=== PATIENT | female | born 1960 | race Caucasian/White ===

== ENCOUNTER → 2016-06-14 | Outpatient (CLI) | payer BC ==
--- NOTE | 2016-06-14 13:51 | KCIC ---
LEFT LOWER EXTREMITY VENOUS DUPLEX DOPPLER Indication: Reason For Study Reason: / Spl. Instructions: / History: Technique: Multiple real-time grayscale sonographic images were obtained over the left lower extremity with use of spectral analysis and color Doppler imaging. Findings: There is normal color fill in on Doppler imaging of the deep venous system in the left lower extremity. There is normal response to compression and augmentation. No evidence for deep venous thrombosis. No soft tissue mass or fluid collection is identified. Impression: Negative for deep venous thrombosis in the left lower extremity. Electronically signed by: Dennis Menchaca (Jun 14, 2016 13:49:30)
== END | disposition home or self-care (01) ==
LOC: KCIC US 13:12
PROVIDERS: ATTEND Physician Assistant Medical
DX: M79.605 Pain in left leg (principal)
CPT/HCPCS: 93971